=== PATIENT | female | born 1950 | race Caucasian/White ===

== ENCOUNTER 2017-03-10 10:30 | Outpatient (CLI) | payer MEDICARE | END 2017-03-10 10:31 | disposition home or self-care (01) | DX: Z51.81 Encounter for therapeutic drug level monitoring (principal); F31.9 Bipolar disorder, unspecified ==

== ENCOUNTER 2017-06-18 10:00 | Outpatient (CLI) | payer MEDICARE ==
--- NOTE | 2017-06-18 21:02 | CONSULTATION NOTE ---
Palliative Care Consultation - Referral Referring Provider: Javier Hawkins MD Time of Visit: 10:00 Referral setting: Home (Seen in home setting due to taxing and considerable effort required to leave the home secondary to dementia and severe mental illness causing her to be homebound.) Referral Reason: Weight loss, comfort and care needs, advance care planning. - Information Sources History obtained from: Patient, Family Exam limitations: Clinical condition (dementia and mental illness) - History of Present Illness Brief History of Present Illness: Thank you, Dr. Javier Hawkins, for asking the palliative care consult service to be involved in the care of your patient. I am asked to provide support regarding a decline in weight, increased frailty, and goals of care in the setting of dementia memory problems, and bipolar disorder. This is a 66-year-old woman with dementia and a long-history of bipolar disorder with psychotic symptoms (auditory hallucinations) in more recent years. She lives at home with her , who is her sole caregiver. For many years he was the editor greeting card of the [employer] newspaper, and he has been retired for several years now in order to care for his . He explained that in the past her bipolar disorder was controlled with lithium (starting in 1984) , and she had an outgoing and gregarious personality. 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 In 2012 she had an involuntary hospitalization in [facility] geriatric psychiatric unit for about 40 days. Tonasket was stopped and quetiapine started. Initially the quetiapine worked well; she was happy walking the dog, hosting dinner parties, etc. In January 2016 she started having auditory hallucinations and was treated at [facility] in [place] with haloperidol. After these episodes, there was a significant change, and she gradually declined until she now spends most of her time in the home, no longer wants to go out, sleeps 17-18 hours a day, usually in bed or on the couch until 11:00am or noon. She is no longer interacting with people. Her daughter comes over with her two young children, ages 5 and 8, and the patient acknowledges them but does not interact or play with them. Slowly friendships have dropped off; people are no longer calling (she is hard of hearing, does not want to wear hearing aids, and has difficulties following the conversation). Her dementia is a factor, with increasing memory issues and forgetfulness. She has had a steady and significant weight loss in the past two years, losing 1/3 of her weight (154 lbs in May 2015, to 102 lbs in May 2017).When asked about this, she says she is not hungry. Her is trying various foods and various ways of preparing them. She has been having problems with swallowing and choking, so he is starting to chop the meat finely. She has refused a swallow evaluation in the past and is currently scheduled for a barium swallow test on 06/24/2017; her hopes she will not refuse. She is being followed by Dr Javier Grijalva, her PCP at [facility], as well as Dr Joyce, a psychiatrist who manages her psychiatric medications. She had a recent brain MRI last week, as well as a chest CAT scan. Her spouse was not sure what the chest scan was for. He was surprised she finished the MRI ; the machine was very loud and it upset her, but she did complete the test. The doctors plan is to slowly wean her off the antipsychotics and increase lithium in the hope that this might improve her situation. She fell in August 2016 resulting in a L shoulder fracture, and has been having PT sessions, which her reports are almost finished. She states her L shoulder still hurts, but does not take pain medication for it. She talked about being cold several times during the visit, and inquired whether we were too. Her reports she has had some thyroid testing previously. We filled out a POLST for her during this visit; the was sure she wanted full treatment, and says she always said she wanted to live forever. She agreed to full treatment, but also was concerned that we not make her do anything. I assured her we would not and in fact could not. This was a recurrent theme; as she has refused treatment and procedures in the past, and still has some negative feelings towards past treatments, in particular the involuntary hospitalization in 2012. Information obtained from patient, spouse, and EMR chart notes from [place] visit 05/30/17. Medical/Surgical History - Past Medical History Cardiovascular: reports: None Respiratory: reports: None Neuro: reports: None, Dementia, Tremors Endocrine/Autoimmune: reports: None, HyPOthyroidism GI: reports: GERD, Colon polyps : reports: None HEENT: reports: None Psych: reports: Anxiety, Bipolar disorder Musculoskeletal: reports: None, Other (healed fracture of L shoulder) Derm: reports: None MRSA Hx?: No Social History - Living Situation Living arrangement: At home Living Situation: With spouse/s.o. Support System: is sole caregiver. Daughter and her and two young children live close by, in [place]. There are also two other adult daughters. Medications/Allergies - Medications Home Medications: Ambulatory Orders Medication Instructions Recorded Confirmed Benztropine [Cogentin] 0.5 mg PO DAILY 08/14/16 06/18/17 Donepezil HCl [Aricept] 10 mg PO DAILY 08/14/16 06/18/17 Hydrocodone/Acetaminophen [[place] 1 each PO Q6H PRN #20 tablet 08/14/16 5-325 Tablet] QUEtiapine [SEROquel] 50 mg PO TID 08/14/16 06/18/17 Haloperidol 1.5 mg DAILY PM 06/18/17 06/18/17 Haloperidol [Haloperidol] 1 mg BID 06/18/17 06/18/17 [place] 300 mg PO DAILY 06/18/17 06/18/17 Lorazepam [Lorazepam] 06/18/17 - Allergies Allergies/Adverse Reactions: Allergies Allergy/AdvReac Type Severity Reaction Status Date / Time aspirin Allergy Intermediate Rash Verified 05/11/13 07:27 Sulfa (Sulfonamide Allergy Intermediate Edema Verified 05/11/13 07:27 Antibiotics) hydrogen peroxide Allergy Mild Rash Verified 05/11/13 09:34 [Hydrogen Peroxide] Penicillins Allergy Unknown unknown Verified 05/11/13 09:44 polyethylene glycol 3350 * Allergy Unknown unknown Verified 05/11/13 09:44 [From Miralax] procaine HCl * Allergy Unknown unknown Verified 05/11/13 09:44 [From Novocain] tape Allergy Intermediate Rash Uncoded 05/11/13 09:35 Review of Systems - Ears, Nose & Throat Ears, Nose & Throat: reports: Hearing loss - Cardiovascular Cariovascular: denies: Chest pain, Edema - Gastrointestinal Gastrointestinal: reports: Constipation - Genitourinary Genitourinary: denies: Dysuria - Musculoskeletal Musculoskeletal: reports: Other (L shoulder pain s/p fracture) - Endocrine Endocrine: reports: Intolerance to cold Physical Examination - Vital Signs Temperature: 98.5 C Pulse Rate: 59 O2 Saturation: 95 Blood Pressure: 112/80 - Physical Exam General Appearance: positive: No acute distress, Lethargic Eyes Bilateral: positive: No lid inflammation, Conjunctivae nml, No scleral icterus Neck: positive: Trachea midline Respiratory: positive: Chest non-tender, No respiratory distress, Breath sounds nml Cardiovascular: positive: Regular rate & rhythm, No murmur Abdomen: positive: Non-tender, No organomegaly, Nml bowel sounds Extremities: positive: Non-tender, Other (limited ROM upper L extremity) Palliative Care - POLST Patient has POLST: Yes POLST Status: Full Code Pain: Location (L shoulder) Drowsiness: Mild (1-3) Nausea: None Anxiety: Mild (1-3) Dyspnea: None Anorexia: Moderate (4-6) Insomnia: Other (sleeps 17-18 hours as reported by ) Constipation: Yes Feelings of wellbeing/Perceived Quality of Life: Comment (she would like to be able to talk to more people, like she used to) Performance Status: Previous level of function prior to this episode: In 2012 prior to the hallucinating episodes and subsequent involuntary hospitalization, there were episodes but 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 Current level of functioning: Shuffling gait, but will not use walker. supports her by the arm when they leave the house. Decreasing performance of ADLs; brushes but cannot floss teeth, must now bath her and does it two times a week. Loss of 1/3 of weight over the past two years (154 lbs 05/2015, 102 lbs 05/2017). Prefers staying in house; is in bed or on couch most of the time. Sleeps excessively (17 hrs/day). Limited range of motion in L arm, s/p L shoulder fracture 08/2016. General weakness of lower and upper extremities. Memory problems, with difficulty following the conversation. Palliative Care Performance Status: 60% - Palliative Care Discussion: Who is present: The patient, her spouse, myself Surrogate decision maker: Spouse Beto Harrington, Patient/Family understanding of the illness: Patient has limitations of her understanding due to dementia and her psychiatric illness. She is aware of her social isolation, that people no longer call or come over, and that talking with people is something she enjoys. But she says she prefers to stay at home. is cautiously hopeful that medication adjustments by the psychiatrist may help improve her day-to-day life, but also recognizes this may not improve. Most important goals: Spouse wishes for improved quality of life for the patient. He requests help and guidance with her medical situation and guidance on taking care of her needs at home. . During my conversation with the patient, she said that she enjoys talking to people but friends and others are not around anymore, and no one calls. Her said that my conversation with her was the longest she had spoken to anyone in quite awhile. He thinks it would be good for her to have people come to the house, such as volunteers through Palliative [facility], and the palliative care rotary filter operator, in order to increase her social contact and help get her involved in life again. Patient/family concerns: Her is happy to have support from the palliative care team and is agreeable to having PROFESSOR OF FINE ART support. When asked if he currently has any accounts payable processor support, he said he doesnt but that his daughter has told him he needs it. He doesnt think it is necessary, He stays at home most of the time, leaving just for 1 hour at a time to run errands. He down- played this role and said he was happy to do this; I am concerned about accounts payable processor burnout. They were able to go on a family outing this past year to [place], with their daughter and her family. He enjoyed the outing but the patient stayed in the car, and didnt go to the beach. is also concerned about her refusals to go to medical appointments or getting her to agree to participate in tests or procedures. Patient was perseverating about her choosing DNR on his own POLST, and the anticipated this might become a topic of fixation for her. She is not anxious about her own POLST choice of full code. I assured them it is a flexible tool, and we can continue discussions at future visits as needed and desired. Impression and Recommendations - Palliative Care Impression: This is a 66-year-old woman with severe psychiatric illness compounded by advancing dementia, with significant weight loss since 2015 and declining functionality. Both she and her have become socially isolated due to the demands and constraints of her illnesses, and there is high risk of accounts payable processor burnout. She is socially isolated and would likely benefit from increased contact, if the right match could be made, for example, with a volunteer. She currently does not meet criteria for home health or hospice, but she and her would benefit from palliative care support. Her psychiatric medications are being managed by a psychiatrist. She is at risk for aspiration pneumonia secondary to likely dysphagia; a barium swallow has been scheduled for next week. EARLY CHILDHOOD LEAD TEACHER evaluation has been refused by the patient. Recommendations/Counseling Done: 1. Advanced planning: Completed POLST. May revisit at a future visit, as needed by patient and family. Goals of care are improving quality of life for the patient and supporting in his role. Referral to PROFESSOR OF FINE ART for help with this. 2. Dementia with psychosis/bipolar disorder: Currently on quetiapine, haloperidol, lorazepam, lithium, benztropine, and donepezil, titration of psychiatric medsis managed by her psychiatrist. MRI and chest scan done last week. 3. Social isolation: PROFESSOR OF FINE ART referral (see above) and also recommend assigning an appropriate volunteer, as well as rotary filter operator visits. They will talk about it to see if she is willing and comfortable having another person(s) come to the house, and we will continue the discussion at my next visit in two weeks. 4. Dysphagia: Barium swallow test scheduled for 06/24. Hopefully patient will agree to procedure and EARLY CHILDHOOD LEAD TEACHER evaluation. The cuts food into small pieces in meantime. 5. Anorexia: Her will test out Ensure and Boost with her and if she likes them, I will prescribe so he can get a discount at [facility]. 6. Pain in L shoulder: Physical therapy sessions are drawing to a close. Patient says she is not taking anything for the pain; confirm with if she is taking Tylenol or other analgesic. Time Spent: 120 minutes with greater than 50% of this done in counseling and coordination of care, weighing benefits and burdens of treatment options, explanation of POLST options and discussion of advanced planning.
== END 2017-06-18 10:01 | disposition home or self-care (01) ==
LOC: PC 10:00
PROVIDERS: ATTEND Nurse Practitioner
DX: Z51.5 Encounter for palliative care (principal); F03.90 Unspecified dementia, unspecified severity, without behavioral disturbance, psychotic disturbance, mood disturbance, and anxiety; Z60.4 Social exclusion and rejection; R13.10 Dysphagia, unspecified; R63.0 Anorexia; M25.512 Pain in left shoulder; F31.9 Bipolar disorder, unspecified; R63.4 Abnormal weight loss; Z91.81 History of falling; Z79.899 Other long term (current) drug therapy; Z87.81 Personal history of (healed) traumatic fracture
CPT/HCPCS: 99345

== ENCOUNTER 2017-07-03 14:55 | Outpatient (CLI) | payer MEDICARE ==
--- NOTE | 2017-07-03 16:43 | PROVIDER PROGRESS NOTE ---
Palliative Care Follow Up - Referral Referring Provider: Dr Javier Grijalva Time of Visit: 14:55 Referral setting: Home (Seen in home setting due to taxing and considerable effort required to leave the home secondary to dementia and severe mental illness causing her to be homebound.) - Information Sources History obtained from: Patient, Family Exam limitations: Clinical condition (dementia and mental illness) - History of Present Illness Update Brief HPI Update: This is a 66-year-old woman with dementia and a long-history of bipolar disorder and a more complicated psychiatric history since 2007, including psychotic symptoms (auditory hallucinations) and involuntary hospitalization. She now lives at home with her , who is her sole caregiver. She spends almost all of her time in the house, sleeping many hours per day. Her also does not get out much apart from running short errands for an hour or so. Yesterday she had a modified barium swallow test which indicated dysphagia and she has a referral to the Speech Language therapist. She has a history of refusing treatment and not going to appointments, so her is uncertain whether she will agree to an appointment. I explained to her what the swallow test was for and why therapy could help her avoid becoming sick with aspiration pneumonia. Her appetite is poor, and this is compounded by the dysphagia. Her is chopping her food finely, and has a referral for a icu registered nurse but again, it is uncertain whether she will agree to go. I gave him recipes for high-calorie smoothies and drinks, recommended adding powdered milk to drinks, and he liked that idea. I also recommended smaller, more frequent meals. Her weight today on the home scale was 98 lbs; her latest weight at the doctors office was 102 lbs, so it is unclear if she has lost more or it is a difference between scales. Two years ago her weight was 154 lbs. She was pleasant and cooperative during this visit and seemed more comfortable in my presence. She has difficulty following the conversation, and has significant memory deficits but is also able to recall some recent events, such as going to the barium swallow procedure yesterday. Her hearing deficit further impedes her comprehension. She has no complaint today about pain; she recently completed physical therapy for a L shoulder injury. Her BP today was 90/62 on L arm; she denied vertigo, lightheadedness, syncope or feeling weak. BP on R arm 5 minutes later was 100/66. Information obtained from patient, spouse, and EMR chart notes. Medications/Allergies - Medications Home Medications: Ambulatory Orders Medication Instructions Recorded Confirmed Benztropine [Cogentin] 0.5 mg PO DAILY 08/14/16 07/03/17 Donepezil HCl [Aricept] 10 mg PO DAILY 08/14/16 07/03/17 Hydrocodone/Acetaminophen [[place] 1 each PO Q6H PRN #20 tablet 08/14/16 07/03/17 5-325 Tablet] QUEtiapine [SEROquel] 50 mg PO TID 08/14/16 07/03/17 Haloperidol 1.5 mg DAILY PM 06/18/17 07/03/17 Haloperidol [Haloperidol] 1 mg BID 06/18/17 07/03/17 [place] 300 mg PO DAILY 06/18/17 07/03/17 Lorazepam [Lorazepam] 0.25 mg PO BID 06/18/17 07/03/17 LORazepam [Ativan] 0.5 mg PO QPM MDD at bedtime 07/03/17 07/03/17 - Allergies Allergies/Adverse Reactions: Allergies Allergy/AdvReac Type Severity Reaction Status Date / Time aspirin Allergy Intermediate Rash Verified 05/11/13 07:27 Sulfa (Sulfonamide Allergy Intermediate Edema Verified 05/11/13 07:27 Antibiotics) hydrogen peroxide Allergy Mild Rash Verified 05/11/13 09:34 [Hydrogen Peroxide] Penicillins Allergy Unknown unknown Verified 05/11/13 09:44 polyethylene glycol 3350 * Allergy Unknown unknown Verified 05/11/13 09:44 [From Miralax] procaine HCl * Allergy Unknown unknown Verified 05/11/13 09:44 [From Novocain] tape Allergy Intermediate Rash Uncoded 05/11/13 09:35 Review of Systems - Constitutional Constitutional: reports: Weight loss - Ears, Nose & Throat Ears, Nose & Throat: reports: Hearing loss - Cardiovascular Cariovascular: reports: Chest pain. denies: Lightheadedness, Syncope - Respiratory Respiratory: denies: Cough, SOB at rest - Gastrointestinal Gastrointestinal: denies: Constipation, Diarrhea, Change in bowel habits - Genitourinary Genitourinary: denies: Dysuria - Endocrine Endocrine: reports: Intolerance to cold Physical Examination - Vital Signs Temperature: 97.6 C Pulse Rate: 81 O2 Saturation: 97 Blood Pressure: 100/66 - Physical Exam General Appearance: positive: No acute distress Eyes Bilateral: positive: No lid inflammation, Conjunctivae nml, No scleral icterus Neck: positive: Trachea midline Respiratory: positive: Chest non-tender, No respiratory distress, Breath sounds nml Cardiovascular: positive: Regular rate & rhythm Extremities: positive: Non-tender, No pedal edema Neurologic/Psychiatric: positive: Other (affect flat) Palliative Care - POLST Patient has POLST: Yes POLST Status: Full Code Pain: No pain Drowsiness: None Nausea: None Anxiety: None Dyspnea: None Anorexia: Moderate (4-6) Insomnia: Sleeps well (sleeps excessively) Feelings of wellbeing/Perceived Quality of Life: No change Performance Status: Current level of functioning: Shuffling gait, does not use walker, supports her when they walk outside, which she will agree to occasionally. Cannot perform all ADLs; brushes but cannot floss teeth, must now bath her and does it two times a week. Loss of 1/3 of weight over the past two years (currently around 100 lbs, previously was 154 lbs). Mostly housebound and sleeps most of the day. General weakness of lower and upper extremities. Memory deficits and hearing loss make it difficult for her to follow the conversation. Palliative Care Performance Status: 60% - Palliative Care Discussion: Who is present: The patient, her spouse, myself Surrogate decision maker: Spouse Beto Harrington, Patient/Family understanding of the illness: Patient lacks comprehension of her disease. She has significant memory deficits, but will remember her experiences with healthcare providers and appointments, such as going to the barium swallow procedure yesterday, without understanding the reasons. hopes for some improvement with psychiatric medication adjustments, but is realistic enough to know that these would be minor improvements, at most. He stated today that he thinks he will before his does, luckily. Most important goals: Her likes having a medical worker coming to the home and keeping an eye on her medically since he doesnt have medical expertise. Patient/family concerns: Her wants to continue receiving healthcare support at home since it is so difficult to get her to agree to go to appointment and see biomedical engineering aide. Her weight loss is quite concerning and needs support. He is hopeful his will agree to see a icu registered nurse; they already have a referral in place. The patient is full code. Impression and Recommendations - Palliative Care Impression: This is a 66-year-old woman with severe psychiatric illness compounded by advancing dementia, with significant weight loss since 2015 and declining functionality. Her is her sole caregiver and risks burnout, but is resistant to having outside chief wheelage clerk support, saying his would not accept it. ERP SPECIALIST support may be provide some new ideas and a visit is scheduled for tomorrow. Recommendations/Counseling Done: 1. Advanced planning: POLST which is full code. Goals of care are improving quality of life for the patient and supporting in his role. Referral to ERP SPECIALIST for help with this, she has an appointment with them tomorrow. 2. Dementia with psychosis/bipolar disorder: Stable on quetiapine, haloperidol , lorazepam, lithium, benztropine, and donepezil, titration of psychiatric medications is managed by her psychiatrist. Last titration was about 2 months ago; so far they have been unsuccessful in lowering antipsychotic dosing. 3. Dysphagia: Barium swallow test completed. Therapy recommended to improve swallow function and decrease risk of choking/aspiration pneumonia. 4. Anorexia: Supplied high-calorie smoothie recipes, recommended using powdered milk to increase calories and serving smaller, more frequent meals. Referral to icu registered nurse in place, uncertain if patient will agree to participate. Time Spent: 45 minutes with greater than 50% of this done in counseling and coordination of care, weighing benefits and burdens of treatment options, and reviewing advanced planning.
== END 2017-07-03 14:56 | disposition home or self-care (01) ==
LOC: PC 14:55
PROVIDERS: ATTEND Nurse Practitioner
DX: Z51.5 Encounter for palliative care (principal); F31.9 Bipolar disorder, unspecified; R63.4 Abnormal weight loss; F03.90 Unspecified dementia, unspecified severity, without behavioral disturbance, psychotic disturbance, mood disturbance, and anxiety; R13.10 Dysphagia, unspecified; R63.0 Anorexia; Z79.899 Other long term (current) drug therapy
CPT/HCPCS: 99349

== ENCOUNTER 2017-07-31 11:00 | Outpatient (CLI) | payer MEDICARE ==
--- NOTE | 2017-07-31 17:32 | CONSULTATION NOTE ---
Palliative Care Follow Up - Referral Referring Provider: Javier Hawkins MD Time of Visit: 11:00 Referral setting: Home (Seen in home setting due to taxing and considerable effort required to leave the home secondary to dementia and severe mental illness causing her to be homebound.) - Information Sources Records reviewed: Previous records reviewed History/Review of Systems obtained from: Patient, Family Exam limitations: Clinical condition (dementia complicated by mental illness) - History of Present Illness Update Brief HPI Update: This is a 66-year-old woman with dementia and a long-history of bipolar disorder and a more complicated psychiatric history since 2007, including psychotic symptoms (auditory hallucinations) and involuntary hospitalization. She now lives at home with her , who is her sole caregiver. She spends most of her time in the house, sleeping many hours per day. Her also does not get out much apart from running short errands for an hour or so. The patients reports that she has a distrust of healthcare workers after her experiences being involuntarily hospitalized. So she frequently refuses to go to scheduled medical appointments.This occurred most recently with the speech language therapist after a barium swallow test at the end of June indicated dysphagia. She now has a new appointment set for Aug 11. Her appetite continues to be poor, and her says she has always been a finicky eater. She was 154 lbs in May 2015, 135 lbs December 2015, ~98 lbs 07/03 and ~95 lbs today. Her states that she has not left the house since my last visit, and they have not had visitors, including their daughter. Their daughter is coming to visit them this weekend. During a recent visit by the LEAF COVERER, both he and his resisted recommendations to hire caregivers. It is not clear if this is due to financial constraints or not wanting healthcare workers in their house. The is very resistant to having other people in the house, and the carefully negotiates these issues with her. As I have noted before, he is at risk of microbiological lab technician burn out since he is taking care of her essentially by himself. He has repeatedly stated he wants Palliative Care visits monthly, and I feel this is a arroyo need; their isolation is concerning, and he needs and desires medical oversight of his wifes condition, since she often refuses to attend medical appointments. She has no complaint today about pain, but her reports she has L hip pain after any exercise. If they go out on a walk, she is in pain afterward. She has had PT in the past for her L shoulder; she has limited ROM in the L arm and shoulder, but it is better than it was previously, as reported by the . She does report hearing crickets during the visit, and says that she wasnt hearing them this morning. This is unclear if its an auditory hallucination, or a description of tinnitus. Her lithium has been titrated recently up to 450mg daily after a low lithium level of 0.5 (0.8-1.0 normal range) Information obtained from patient, spouse, and EMR chart notes. Social History - Living Situation Living arrangement: At home Living Situation: With spouse/s.o. Support System: Virtually no outside support. One daughter lives in [place] with her family, and appears to visit infrequently. There are also two other adult daughters. Medications/Allergies - Medications Home Medications: Ambulatory Orders Medication Instructions Recorded Confirmed Benztropine [Cogentin] 0.5 mg PO DAILY 08/14/16 07/31/17 Donepezil HCl [Aricept] 10 mg PO DAILY 08/14/16 07/31/17 Hydrocodone/Acetaminophen [[place] 1 each PO Q6H PRN #20 tablet 08/14/16 07/31/17 5-325 Tablet] QUEtiapine [SEROquel] 50 mg PO TID 08/14/16 07/31/17 Haloperidol 1.5 mg DAILY PM 06/18/17 07/31/17 Haloperidol [Haloperidol] 1 mg BID 06/18/17 07/31/17 [place] 450 mg PO DAILY 06/18/17 07/31/17 Lorazepam [Lorazepam] 0.25 mg PO BID 06/18/17 07/31/17 LORazepam [Ativan] 0.5 mg PO QPM MDD at bedtime 07/03/17 07/31/17 - Allergies Allergies/Adverse Reactions: Allergies Allergy/AdvReac Type Severity Reaction Status Date / Time aspirin Allergy Intermediate Rash Verified 05/11/13 07:27 Sulfa (Sulfonamide Allergy Intermediate Edema Verified 05/11/13 07:27 Antibiotics) hydrogen peroxide Allergy Mild Rash Verified 05/11/13 09:34 [Hydrogen Peroxide] Penicillins Allergy Unknown unknown Verified 05/11/13 09:44 polyethylene glycol 3350 * Allergy Unknown unknown Verified 05/11/13 09:44 [From Miralax] procaine HCl * Allergy Unknown unknown Verified 05/11/13 09:44 [From Novocain] tape Allergy Intermediate Rash Uncoded 05/11/13 09:35 Review of Systems - Constitutional Constitutional: reports: Weakness, Poor appetite, Other (Feels cold) - Ears, Nose & Throat Ears, Nose & Throat: reports: Hearing loss, Tinnitus ([place] "crickets") - Cardiovascular Cardiovascular: denies: Palpitations, Chest pain - Respiratory Respiratory: denies: Cough, SOB at rest - Gastrointestinal Gastrointestinal: denies: Constipation, Diarrhea, Nausea - Genitourinary Genitourinary: denies: Dysuria - Musculoskeletal Musculoskeletal: reports: Other ( reports L hip pain after exertion) - Neurological Neurological: reports: General weakness, Abnormal gait (shuffling), Other ( tremors of both upper extremities) - Psychiatric Psychiatric: reports: Anxiety (on lorazepam), Hallucinations (history of), Behavior disturbances (none reported recently) - Endocrine Endocrine: reports: Intolerance to cold Physical Exam - Vital Signs Temperature: 97.6 F Pulse Rate: 87 O2 Saturation: 95 Blood Pressure: 118/70 - Physical Exam General Appearance: positive: No acute distress, Lethargic Eyes Bilateral: positive: EOMI, No lid inflammation, Conjunctivae nml, No scleral icterus ENT: positive: No signs of dehydration Neck: positive: No JVD, Trachea midline Cardiovascular: positive: Regular rate & rhythm, No murmur Respiratory: positive: No respiratory distress, Diminished in bases Extremities: positive: No pedal edema Neurologic/Psychiatric: positive: Disoriented to time, Flat affect. negative: Motor nml (gross tremors of upper extremities) Palliative Care - POLST Patient has POLST: Yes POLST Status: Full Code Pain: Pain unchanged, Location (L hip, with exertion) Tiredness/Fatigue: Mild (1-3) (excessive sleep) Drowsiness/Sedation: Mild (1-3) Nausea: None Depression: None Anxiety: Mild (1-3) Anorexia: Moderate (4-6) Sleep: Sleeps well Constipation: Intermittent constipation Feelings of wellbeing/Perceived Quality of Life: No change Performance Status: Current level of functioning: Shuffling gait, does not use walker, support by outside the house. Requires aid with all ADLs, but brushes her own teeth. General weakness of lower and upper extremities, significant weight loss over 2 years (154 lbs to 98-95 lbs). Memory deficits and hearing loss contribute to the patients isolation, and by extension, the husbands too. Palliative Care Performance Status: 60% - Palliative Care Discussion: Who is present: The patient, her spouse, myself Surrogate decision maker: Spouse Beto Harrington, home [phone] Most important goals: Her specifically requests continuation of monthly visits. They lead a very isolated life, are very unlikely to bring in outside caretaking help, and he wishes to have medical oversight for her, as it is extremely difficult to get her to leave the house, and to agree to medical appointments. She stated today that she didnt like me coming in to the house, and her stated that shes actually ok. She was cooperative and followed directions. Patient/family concerns: Her weight loss, and her is hopeful she will attend the upcoming speech language therapy session on 08/11/17. She refused the previous appointment. The patient continues to be full code. Impression and Recommendations - Palliative Care Impression: This is a 66-year-old woman with severe psychiatric illness compounded by advancing dementia, with significant weight loss since 2015 and declining functionality. She and her are very socially isolated; she rarely leaves the house and often refuses to go to scheduled medical appointments. Her is her sole caregiver and risks burnout. They will benefit from Palliative Care oversight. The is currently full code, but continues to have failure to thrive. On-going discussions of goals of care Recommendations/Counseling Done: 1. Advanced planning: POLST is full code. Goals of care are improving quality of life for the patient and supporting in his role. requests continued Palliative Care visits monthly, both as a support for him in his isolated role, and as reassurance for him that his is receiving medical oversight as it is very challenging to get her out to medical, or any appointments. 2. Dementia with psychosis/bipolar disorder: Stable on a complicated regimen of psychiatric medications, including quetiapine, haloperidol, lorazepam, lithium, benztropine, and donepezil. Her psychiatrist has increased her lithium to 450mg daily due to low lithium levels (0.5, with the normal range being 0.8- 1.0) 3. Dysphagia: Barium swallow test was positive. Previous [employer] MANA[employer] therapy appointment was cancelled by patient; a new appointment is scheduled for . is not sure his will agree to go. 4. Failure to thrive: Further weight loss, now at 95 lbs. Continue to monitor. May consider adding mirtazapine, need to consult first with psychiatrist due to the complicated regimen of psych meds she is currently taking. Encourage her to continue to supply high calorie meals and snacks, and smaller more frequent meals. 5. Parkinsons: Symptomatic with shuffling gait, resting tremors of bilateral upper extremities. On Benztropine daily. Recommended several accommodations for improving her daily functions (eg, using heavier mugs, etc) Time Spent: 45 minutes with greater than 50% of this done in counseling and coordination of care around eating, weight loss, dementia, and goals of care.
== END 2017-07-31 11:01 | disposition home or self-care (01) ==
LOC: PC 11:00
PROVIDERS: ATTEND Nurse Practitioner
DX: Z51.5 Encounter for palliative care (principal); F03.90 Unspecified dementia, unspecified severity, without behavioral disturbance, psychotic disturbance, mood disturbance, and anxiety; F31.9 Bipolar disorder, unspecified; R13.10 Dysphagia, unspecified; R62.7 Adult failure to thrive; G20 Parkinson's disease; R44.0 Auditory hallucinations; M25.552 Pain in left hip; Z79.891 Long term (current) use of opiate analgesic; R53.1 Weakness; F41.9 Anxiety disorder, unspecified; R63.4 Abnormal weight loss; K59.00 Constipation, unspecified
CPT/HCPCS: 99349

== ENCOUNTER 2017-08-28 11:00 | Outpatient (CLI) | payer MEDICARE ==
--- NOTE | 2017-08-28 15:33 | CONSULTATION NOTE ---
Palliative Care Follow Up - Referral Referring Provider: Dr. Javier Hawkins Time of Visit: 11:15 Referral setting: Home (Seen in home setting due to taxing and considerable effort required to leave the home secondary to dementia and severe mental illness causing her to be homebound.) - Information Sources Records reviewed: Previous records reviewed History/Review of Systems obtained from: Patient, Family Exam limitations: Clinical condition (Dementia with psychosis) - History of Present Illness Update Brief HPI Update: This is a 66-year-old woman with dementia and a long history of bipolar disorder and a more complicated psychiatric history since 2007, including psychotic symptoms (auditory hallucinations) and involuntary hospitalization. She now lives at home with her who is her sole caregiver. She spends most of her time in the house, sleeping many hours per day. Her also does not get out much apart from running short errands for an hour or so. Since my last visit she did not attend the 08/11/17 appointment with the speech therapist. The speech therapist provided advice and guidance over the phone to the , and he is following this advice and feels that it has improved her swallowing. We discussed further interventions to minimize issues with dysphagia. She reports an increased appetite and thinks she is eating better, however she has lost another pound, now at 94 pounds. She continues to be very isolated in the house, however they have had visitors lately. Her daughter and grandchildren recently visited, and this weekend she is expecting her sister from [place] for about a week. At [facility] her daughter from [place] will be staying with them for one week. We discussed her leaving the house at least once a day for even just a few minutes as a way to increase her exercise and alleviate her mood. She does continue to spend many hours sleeping throughout the day and is socially isolated. She has been stable since my last visit. Again the expresses his gratitude and relief to have a medical provider checking up on her regularly since it is very difficult to get her to agree to go to medical appointments. Social History - Living Situation Living arrangement: At home Living Situation: With spouse/s.o. (He is her sole caregiver.) Medications/Allergies - Medications Home Medications: Ambulatory Orders Medication Instructions Recorded Confirmed Benztropine [Cogentin] 0.5 mg PO DAILY 08/14/16 07/31/17 Donepezil HCl [Aricept] 10 mg PO DAILY 08/14/16 07/31/17 Hydrocodone/Acetaminophen [[place] 1 each PO Q6H PRN #20 tablet 08/14/16 07/31/17 5-325 Tablet] QUEtiapine [SEROquel] 50 mg PO TID 08/14/16 07/31/17 Haloperidol 1.5 mg DAILY PM 06/18/17 07/31/17 Haloperidol [Haloperidol] 1 mg BID 06/18/17 07/31/17 [place] 450 mg PO DAILY 06/18/17 07/31/17 Lorazepam [Lorazepam] 0.25 mg PO BID 06/18/17 07/31/17 LORazepam [Ativan] 0.5 mg PO QPM MDD at bedtime 07/03/17 07/31/17 - Allergies Allergies/Adverse Reactions: Allergies Allergy/AdvReac Type Severity Reaction Status Date / Time aspirin Allergy Intermediate Rash Verified 05/11/13 07:27 Sulfa (Sulfonamide Allergy Intermediate Edema Verified 05/11/13 07:27 Antibiotics) hydrogen peroxide Allergy Mild Rash Verified 05/11/13 09:34 [Hydrogen Peroxide] Penicillins Allergy Unknown unknown Verified 05/11/13 09:44 polyethylene glycol 3350 * Allergy Unknown unknown Verified 05/11/13 09:44 [From Miralax] procaine HCl * Allergy Unknown unknown Verified 05/11/13 09:44 [From Novocain] tape Allergy Intermediate Rash Uncoded 05/11/13 09:35 Review of Systems - Constitutional Constitutional: reports: Weakness, Poor appetite (but improving), Weight loss ( 94 lbs Aug 2017. 95 lbs Jul 2017. 98 lbs Jun 2017. 135 lbs Dec 2015. 154 lbs May 2015.) - Eyes Eyes: reports: Other (dry, teary eyes when heating system was blowing out hot air. Eyes recuperated when heating system was stopped) - Ears, Nose & Throat Ears, Nose & Throat: reports: Hearing loss - Respiratory Respiratory: denies: Cough, SOB at rest, SOB with exertion - Gastrointestinal Gastrointestinal: reports: Constipation (occasional). denies: Nausea, Vomiting - Genitourinary Genitourinary: denies: Dysuria, Frequency, Incontinence - Musculoskeletal Musculoskeletal: reports: Other (no pain complaints today) - Neurological Neurological: reports: Abnormal gait (shuffling, careful) - Psychiatric Psychiatric: reports: Depression, Anxiety, Hallucinations (not currently), Behavior disturbances (at baseline) - Endocrine Endocrine: reports: Intolerance to cold Physical Exam - Vital Signs Temperature: 97.6 F Pulse Rate: 72 O2 Saturation: 96 Blood Pressure: 107/68 - Physical Exam General Appearance: positive: No acute distress, Lethargic Eyes Bilateral: positive: EOMI, No lid inflammation, No scleral icterus. negative: Conjunctivae nml (slightly injected from forced air heating system) ENT: positive: No signs of dehydration Neck: positive: Thyroid nml, No JVD, Trachea midline Cardiovascular: positive: Regular rate & rhythm, No murmur, No gallop Respiratory: positive: No respiratory distress, Diminished throughout Extremities: positive: Nml appearance, No pedal edema Neurologic/Psychiatric: positive: Disoriented to time, Flat affect. negative: Motor nml (gross tremors, at baseline) Palliative Care - POLST Patient has POLST: Yes POLST Status: Full Code Pain: Pain unchanged Tiredness/Fatigue: Mild (1-3) (sleeps excessively) Drowsiness/Sedation: None Nausea: None Depression: None Anxiety: None Dyspnea: None Anorexia: Mild (1-3) Sleep: Sleeps well (excessively) Constipation: No Feelings of wellbeing/Perceived Quality of Life: No change Performance Status: Current level of functioning: Stable since last visit: shuffling gait, does not use walker in the house, needs support from outside the house. Tremors in upper extremities. Requires assistance with all ADLs. Brushes her own teeth. General weakness of lower and upper extremities, weight is 1/3 less than it was two years ago. Today at 94 lbs. Memory deficits and hearing loss. Socially isolated Palliative Care Performance Status: 60% - Palliative Care Discussion: Who is present: The patient, her spouse, myself Surrogate decision maker: Spouse Beto Harrington, home [phone]. Patient/Family understanding of the illness: Does have insight and understanding of the seriousness of patients current condition. Most important goals: requests continued medical home visits for support and overseeing the patient's health status. Patient/family concerns: He notes that the dysphagia/choking has improved. He is following the HEAD SAWYER's advice on best practices re swallowing deficits. Patient has lost one more pound since last visit, although she reports having an improved appetite. We reviewed tactics such as smaller, more frequent meals and snacks, adding powdered milk to liquids. Impression and Recommendations - Palliative Care Impression: This is a 66-year-old woman with severe psychiatric illness compounded by advancing dementia, with significant weight loss since 2014. She also has declined in functionality, however it has recently stabilized. She continues to be ambulatory but requires support from her when she leaves the house, which is very rarely. She continues to avoid medical appointments, and as such a health hourly caregiver coming to the home is very beneficial. Her is her sole caregiver and risks burnout, another reason to continue palliative care oversight. Recommendations/Counseling Done: Parkinson's disease: Stable symptomatically (shuffling gait, hand tremors). Contniue benztropine. Dementia with psychosis/bipolar disorder. Stable on complicated regimen managed by psychiatrist. Continue quetiapine, haloperidol, lorazepam, lithium, benztropine, donepezil. No hallucinations or delusions reported. Dysphagia: No show at Speech pathology appointment. She advised spouse on several tactics to minimize problems with swallowing. He has noticed an improvement. Weight loss: Lost one more pound, now at 94 lbs. She reports an improved appetite. Counselled on high calorie snacks, adding milk powder, smaller meals. She is not on mirtazapine, since she is on a very complicated psych medication regimen. Continue to monitor weight. Advanced planning: POLST is full code. is sole caregiver, neither of them are interested in bringing in additional caregivers. They are having several family visits between now and the end of the year to counteract some of their social isolation. My next palliative care visit is scheduled for October 02. Time Spent: 30 minutes with greater than 50% of this done in counseling and coordination of care, and evaluation of symptom burden.
== END 2017-08-28 11:01 | disposition home or self-care (01) ==
LOC: PC 11:00
PROVIDERS: ATTEND Nurse Practitioner
DX: Z51.5 Encounter for palliative care (principal); G20 Parkinson's disease; F02.81 Dementia in other diseases classified elsewhere, unspecified severity, with behavioral disturbance; F31.9 Bipolar disorder, unspecified; F29 Unspecified psychosis not due to a substance or known physiological condition; R13.10 Dysphagia, unspecified; R63.4 Abnormal weight loss; Z60.8 Other problems related to social environment
CPT/HCPCS: 99348

== ENCOUNTER 2017-10-02 19:11 | Outpatient (CLI) | payer MEDICARE ==
--- NOTE | 2017-10-02 19:22 | CONSULTATION NOTE ---
Palliative Care Follow Up - Referral Referring Provider: Javier Hawkins MD Time of Visit: 11:10 Referral setting: Home (Seen in home setting due to taxing and considerable effort required to leave the home secondary to dementia and significant mental illness causing her to be homebound.) - Information Sources Records reviewed: Previous records reviewed History/Review of Systems obtained from: Patient, Family Exam limitations: Clinical condition (dementia, bipolar disorder) - History of Present Illness Update Brief HPI Update: This is a 66-year-old woman with dementia and a long history of bipolar disorder and a more complicated psychiatric history since 2007, including psychotic symptoms (auditory hallucinations) and involuntary hospitalization. She lives at home with her who is her sole caregiver. She continues to spend most of her time in the house sleeping most of the day. Her also remains in the house with her because he finds if he is gone for more than an hour for a short errands "she gets into trouble." She has been stable since last visit and in fact she has gained 5 or 6 pounds. They have had family over for and have further family gatherings planned for the holidays. Her sister visited from out of state, but the patient acted in such a way (the did not give details) that the sister left after 2 days instead of staying as planned for 5 days. The patient continues to be quite reclusive, and shows a lack of interest in many, if not most activities. For example her daughter brought jewelry making supplies, a hobby that the patient used to like very much, and the patient did not participate even though her grandchild was doing it. She does not like to go outside, especially now that it is cold. The and I discussed possible outings that might interest her, such as the soup kitchen at [facility] which is open to any one. He is quite skeptical that she will be interested, we discussed possibly finding a caregiver who could come consistently a few times a week so that the patient could get used to her, and this might give him an opportunity to be able to leave the house for some much needed breaks and recreation. it would also give the patient a chance to socialize and lessen her isolation. The reports that she stopped taking lithium about a week ago, per Dr. Joyce, her psychiatrist at [place]. This was because "it wasn't doing any good." She has chronic hip pain, and neither one of them could tell me which hip. She does not like ibuprofen but does use Tylenol 1-2 times per week. John was on her meds list but spouse denied that they had any. We spoke of the possibility of hip replacement, and that did not seem a likely option for her, with her history of refusing medical interventions. She still has an issued with choking while eating so he is very careful to chop her meat and other food fine, which improves the choking. She has refused to go to speech therapist appointments several times. Social History - Living Situation Living arrangement: At home Living Situation: With spouse/s.o. (Very socially isolated and home bound by choice.) Medications/Allergies - Medications Home Medications: Ambulatory Orders Medication Instructions Recorded Confirmed Benztropine [Cogentin] 0.5 mg PO DAILY 08/14/16 10/02/17 Donepezil HCl [Aricept] 10 mg PO DAILY 08/14/16 10/02/17 QUEtiapine [SEROquel] 50 mg PO TID 08/14/16 10/02/17 Haloperidol 1.5 mg DAILY PM 06/18/17 10/02/17 Haloperidol [Haloperidol] 1 mg BID 06/18/17 10/02/17 Lorazepam [Lorazepam] 0.25 mg PO BID 06/18/17 10/02/17 LORazepam [Ativan] 0.5 mg PO QPM MDD at bedtime 07/03/17 10/02/17 Acetaminophen 500 mg PO DAILY PRN 10/02/17 10/02/17 - Allergies Allergies/Adverse Reactions: Allergies Allergy/AdvReac Type Severity Reaction Status Date / Time aspirin Allergy Intermediate Rash Verified 05/11/13 07:27 Sulfa (Sulfonamide Allergy Intermediate Edema Verified 05/11/13 07:27 Antibiotics) hydrogen peroxide Allergy Mild Rash Verified 05/11/13 09:34 [Hydrogen Peroxide] Penicillins Allergy Unknown unknown Verified 05/11/13 09:44 polyethylene glycol 3350 * Allergy Unknown unknown Verified 05/11/13 09:44 [From Miralax] procaine HCl * Allergy Unknown unknown Verified 05/11/13 09:44 [From Novocain] tape Allergy Intermediate Rash Uncoded 05/11/13 09:35 Review of Systems - Constitutional Constitutional: reports: Poor appetite, Weight gain (Used to weight around 150 lbs. Last month was 94 lbs; this month 100 lbs.) - Cardiovascular Cardiovascular: denies: Chest pain, Edema - Respiratory Respiratory: denies: Cough - Gastrointestinal Gastrointestinal: denies: Constipation, Change in bowel habits, Nausea - Genitourinary Genitourinary: denies: Dysuria, Incontinence - Musculoskeletal Musculoskeletal: reports: Joint pain (hip pain, did not remember which side), Other (a) - Neurological Neurological: reports: Memory problems, Abnormal gait - Psychiatric Psychiatric: reports: Hallucinations - Endocrine Endocrine: reports: Intolerance to cold Physical Exam - Vital Signs Temperature: 97.7 F Pulse Rate: 105 O2 Saturation: 99 Blood Pressure: 110/80 - Physical Exam General Appearance: positive: No acute distress, Alert Eyes Bilateral: positive: EOMI, No lid inflammation, Conjunctivae nml, No scleral icterus ENT: positive: No signs of dehydration Neck: positive: Thyroid nml, No JVD, Trachea midline Cardiovascular: positive: Regular rate & rhythm, No murmur, No gallop Respiratory: positive: Chest non-tender, No respiratory distress, Breath sounds nml Abdomen: positive: Non-tender, Soft, Nml bowel sounds Skin: positive: No symptoms Extremities: positive: Nml appearance, No pedal edema Neurologic/Psychiatric: positive: Disoriented to time, Flat affect Palliative Care - POLST Patient has POLST: Yes POLST Status: Full Code Pain: Location (Hip; no complaints currently) Tiredness/Fatigue: Mild (1-3) (sleeps excessively) Drowsiness/Sedation: None Nausea: None Depression: None Anxiety: None Dyspnea: None Anorexia: Moderate (4-6) Sleep: Sleeps well (sleeps throughout the day, excessively) Constipation: No Feelings of wellbeing/Perceived Quality of Life: No change Performance Status: Current level of functioning: Stable, shuffling gait, requires physical support when outside the house. Upper extremity tremors. Requires assistance with all ADLs. General weakness of upper and lower extremities, is under-weight but gained 5 lbs since last month. Today at 100 lbs. Memory deficits and hearing loss. She and her are very socially isolated. - Palliative Care Discussion: Who is present: Patient, spouse, myself. Surrogate decision maker: Spouse Beto Harrington, home [phone]. Family concerns: Spouse has been worried about her weight and is relieved to know she gained 5 lbs. He works hard at cooking for her and chopping/shredding her meat so she does not choke. He would like at least one more Palliative Care visit, and if she continues to be stable, then we will discontinue further visits. Impression and Recommendations - Palliative Care Impression: This is a 66 year old woman with severe psychiatric illness compounded by advancing dementia, with significant weight loss since 2015, as well as declining functionality, which has stabilized in the months I have been assessing her. She has gained 5 lbs since last month's visit. She has also stopped lithium on her psychiatrist's recommendation, as it was not having any beneficial effect on behavior. She is quite socially isolated, and as a result, so is her . He is at risk for caregiver burnout and could benefit from bringing in outside help. He remains skeptical that the patient would accept on- going care giving from someone new. Recommendations/Counseling Done: Dementia with psychosis/bipolar disorder: Psychiatrist DC'd lithium. Continues on quetiapine, haloperidol, lorazepam, benztropine and donepezil. No reported delusions, hallucinations. Patient's behavior was such that her sister, visiting from out of state, stayed only 2 days with them, instead of 5 days. Parkinson's disease: Symptoms at baseline with shuffling gait, hand tremors. Continue banxtropine. Dysphagia: Has refused speech pathology appointments previously. Spouse chops meats and other foods to minimize choking risk. Anorexia: Improvement. From 94 lbs last month to 100 lbs this month. She had previously reported an improved appetite. Spouse makes considerable effort in terms of meals and preparations. Advanced planning: Social isolation is still quite significant. We discussed trying a care process manager who could come regularly. The spouse knows of [employer] 's group which sponsor home care givers. There is also [employer] soup kitchen, for a pleasant social outing. Encouraged spouse to consider contacting such organizations for some outside help and support. Spouse is pleased about patient's recent weight gain. If she is still functionally and cognitively stable at next month's visit, we agreed we will discontinue Palliative Care monitoring. Next visit scheduled for 11/05/16 at 11:00am. Time Spent: 45 minutes were spent with more than 50% of the time spent on counseling, education, and coordination of care.
== END 2017-10-02 19:12 | disposition home or self-care (01) ==
LOC: PC 19:11
PROVIDERS: ATTEND Nurse Practitioner
DX: Z51.5 Encounter for palliative care (principal); F31.9 Bipolar disorder, unspecified; G20 Parkinson's disease; F02.80 Dementia in other diseases classified elsewhere, unspecified severity, without behavioral disturbance, psychotic disturbance, mood disturbance, and anxiety; R13.10 Dysphagia, unspecified; R63.0 Anorexia
CPT/HCPCS: 99349

== ENCOUNTER 2021-02-26 11:02 | Outpatient (CLI) | payer MEDICARE ==
[2021-02-26 14:34] LABS: BASOPHILS # (AUTO) 0.1 10^3/uL (0.0-0.1); BASOPHILS % (AUTO) 1.5 %; EOSINOPHILS # (AUTO) 0.1 10^3/uL (0.0-0.7); EOSINOPHILS % (AUTO) 1.8 %; HCT - HEMATOCRIT 37.9 % (37.0-47.0); HGB - HEMOGLOBIN 12.5 g/dL (12.0-16.0); LYMPHOCYTES # (AUTO) 0.7 10^3/uL (1.5-3.5); LYMPHOCYTES % (AUTO) 20.6 %; MEAN CORPUSCULAR HEMOGLOBIN 29.1 pg (27.0-31.0); MEAN CORPUSCULAR VOLUME 88.3 fL (81.0-99.0); MEAN PLATELET VOLUME 9.7 fL (7.9-10.8); MONOCYTES # (AUTO) 0.3 10^3/uL (0.0-1.0); MONOCYTES % (AUTO) 7.9 %; NEUTROPHILS # (AUTO) 2.2 10^3/uL (1.5-6.6); NEUTROPHILS % (AUTO) 67.9 %; PLT - PLATELET COUNT 186 10^3/uL (130-450); RED BLOOD COUNT 4.29 10^6/uL (4.20-5.40); RED CELL DISTRIBUTION WIDTH 13.2 % (12.0-15.0); WHITE BLOOD COUNT 3.3 x10^3/uL (4.8-10.8)
[2021-02-26 14:57] LABS: ALBUMIN 4.2 g/dL (3.2-5.5); ALBUMIN/GLOBULIN RATIO 1.2 (1.0-2.2); ALKALINE PHOSPHATASE 104 IU/L (42-121); ALT ALANINE AMINOTRANSFERASE 16 IU/L (10-60); AST ASPARTATE AMINOTRANSFERASE 23 IU/L (10-42); BILIRUBIN,TOTAL 0.6 mg/dL (0.2-1.0); BUN - BLOOD UREA NITROGEN 20 mg/dL (6-20); CALCIUM 9.5 mg/dL (8.5-10.3); CARBON DIOXIDE - CO2 23 mmol/L (21-32); CHLORIDE 108 mmol/L (101-111); CHOL/HDL RATIO 3.8 (<4.4); CHOLESTEROL 178 mg/dL; CREATININE 0.9 mg/dL (0.4-1.0); GFR - MDRD 62 (>89); GLUCOSE 124 mg/dL (70-100); HDL CHOLESTEROL 47 mg/dL; LDL CHOLESTEROL,CALCULATED 115 mg/dL; LDL/HDL RATIO 2.4 (<4.4); POTASSIUM 4.2 mmol/L (3.5-5.0); SODIUM 140 mmol/L (135-145); TOTAL PROTEIN 7.6 g/dL (6.7-8.2); TRIGLYCERIDES 80 mg/dL; VLDL CHOLESTEROL 16 mg/dL
[2021-02-26 15:01] LABS: THYROID STIMULATING HORMONE 0.93 uIU/mL (0.34-5.60)
== END 2021-02-26 11:03 | disposition home or self-care (01) ==
LOC: LAB.S 11:02
PROVIDERS: ATTEND Physician Assistant
DX: Z00.00 Encounter for general adult medical examination without abnormal findings (principal); Z79.899 Other long term (current) drug therapy; R35.0 Frequency of micturition; K59.00 Constipation, unspecified; F03.90 Unspecified dementia, unspecified severity, without behavioral disturbance, psychotic disturbance, mood disturbance, and anxiety; F31.9 Bipolar disorder, unspecified; F41.9 Anxiety disorder, unspecified; R26.81 Unsteadiness on feet
CPT/HCPCS: 36415; 80053; 80061; 83721; 84443; 85025

== ENCOUNTER 2021-06-04 10:30 | Outpatient (CLI) | payer MEDICARE ==
[2021-06-04 20:03] LABS: ESTIMATED AVERAGE GLUCOSE 85 mg/dL (70-100); HEMOGLOBIN A1c% 4.6 % (4.27-6.07)
== END 2021-06-04 10:31 | disposition home or self-care (01) ==
LOC: LAB.S 10:30
PROVIDERS: ATTEND Physician Assistant
DX: R73.9 Hyperglycemia, unspecified (principal)
CPT/HCPCS: 36415; 83036

== ENCOUNTER 2021-08-31 08:00 | Outpatient (CLI) | payer MEDICARE ==
--- NOTE | 2021-08-31 13:40 | XRAY Report ---
PROCEDURE: Knee 3 View RT INDICATIONS: CONTUSION OF UNSPECIFIED KNEE TECHNIQUE: 3 views of the right knee(s) were acquired. COMPARISON: None. FINDINGS: Bones: No fractures or dislocations. No suspicious bony lesions. Soft tissues: Mild soft tissue swelling along anterior aspect of patella tendon is seen. No significa nt joint effusion. No suspicious soft tissue calcifications. IMPRESSION: No right knee fracture or dislocation. No significant joint effusion. Mild soft tissue s welling along anterior aspect of patella tendon. Reviewed by: Jovanny Edouard MD on 08/31/2021 1:38 PM PDT Approved by: Jovanny Edouard MD on 08/31/2021 1:38 PM PDT Station ID: [id number]
== END 2021-08-31 23:59 | disposition home or self-care (01) ==
LOC: DI.S 08:00
PROVIDERS: ATTEND Physician Assistant Medical
DX: S80.01XA Contusion of right knee, initial encounter (principal)

== ENCOUNTER 2022-06-30 22:36 | Emergency (ER) | payer MEDICARE ==
[2022-07-01 00:38] LABS: BASOPHILS # (AUTO) 0.1 10^3/uL (0.0-0.1); BASOPHILS % (AUTO) 0.6 %; EOSINOPHILS % (AUTO) 0.2 %; HCT - HEMATOCRIT 33.2 % (37.0-47.0); HGB - HEMOGLOBIN 11.3 g/dL (12.0-16.0); LYMPHOCYTES # (AUTO) 0.8 10^3/uL (1.5-3.5); MEAN CORPUSCULAR HEMOGLOBIN 29.7 pg (27.0-31.0); MEAN CORPUSCULAR VOLUME 87.1 fL (81.0-99.0); MEAN PLATELET VOLUME 8.5 fL (7.9-10.8); MONOCYTES # (AUTO) 0.5 10^3/uL (0.0-1.0); MONOCYTES % (AUTO) 5.4 %; NEUTROPHILS # (AUTO) 8.1 10^3/uL (1.5-6.6); NEUTROPHILS % (AUTO) 85.5 %; PLT - PLATELET COUNT 219 10^3/uL (130-450); RED BLOOD COUNT 3.81 10^6/uL (4.20-5.40); RED CELL DISTRIBUTION WIDTH 13.2 % (12.0-15.0); WHITE BLOOD COUNT 9.4 x10^3/uL (4.8-10.8)
[2022-07-01 00:48] LABS: ALBUMIN 4.1 g/dL (3.2-5.5); ALBUMIN/GLOBULIN RATIO 1.3 (1.0-2.2); BILIRUBIN,TOTAL 1.2 mg/dL (0.2-1.0); CALCIUM 9.3 mg/dL (8.5-10.3); POTASSIUM 3.8 mmol/L (3.5-5.0); TOTAL PROTEIN 7.3 g/dL (6.7-8.2)
--- NOTE | 2022-07-01 01:31 | ED Physician Documentation ---
PD HPI ABD PAIN - Stated complaint Stated Complaint: ABD PX - Chief complaint Chief Complaint: Abd Pain - History obtained from History obtained from: Patient (minimal contribution to HPI/ROS due to dementia), Family (spouse in ED at bedside provides most of HPI and what limited ROS he can) - History of Present Illness Timing - onset: Enter time (20:00), Today Timing - details: Abrupt onset Quality: Pain Location: Other (upper abdomen) Associated symptoms: No: Fever, Nausea, Vomiting - Additional information Additional information: patient is quite, answers few questions although she is awake and alert. Spouse is in ED at bedside, says patient c/o upper abdominal pain since 8 PM tonight after eating dinner. Has not had similar symptoms before. Patient is in NAD and says the discomfort appears to have resolved prior to this evaluation. Review of Systems Constitutional: denies: Fever GI: reports: Abdominal Pain. 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 - Present Medications Home Medications: Ambulatory Orders Medication Instructions Recorded Confirmed Benztropine [Cogentin] 0.5 mg PO DAILY 08/14/16 10/02/17 Donepezil HCl [Aricept] 10 mg PO DAILY 08/14/16 10/02/17 QUEtiapine [SEROquel] 50 mg PO TID 08/14/16 10/02/17 Lorazepam 0.25 mg PO BID 06/18/17 10/02/17 haloperidoL [Haloperidol] 1 mg BID 06/18/17 10/02/17 haloperidoL [Haloperidol] 1.5 mg DAILY PM 06/18/17 10/02/17 LORazepam [Ativan] 0.5 mg PO QPM MDD at bedtime 07/03/17 10/02/17 Acetaminophen 500 mg PO DAILY PRN 10/02/17 10/02/17 - Allergies Allergies/Adverse Reactions: Allergies Allergy/AdvReac Type Severity Reaction Status Date / Time aspirin Allergy Intermediate Rash Verified 05/11/13 07:27 Sulfa (Sulfonamide Allergy Intermediate Edema Verified 05/11/13 07:27 Antibiotics) hydrogen peroxide Allergy Mild Rash Verified 05/11/13 09:34 [Hydrogen Peroxide] Penicillins Allergy Unknown unknown Verified 05/11/13 09:44 polyethylene glycol 3350 * Allergy Unknown unknown Verified 05/11/13 09:44 [From Miralax] procaine HCl * Allergy Unknown unknown Verified 05/11/13 09:44 [From Novocain] latex Allergy Unknown Verified 06/30/22 23:10 tape Allergy Intermediate Rash Uncoded 05/11/13 09:35 - Social History Does the pt smoke?: No Smoking Status: Never smoker Does the pt drink ETOH?: No - POLST Patient has POLST: Yes PD ED PE NORMAL - Vitals Vital signs reviewed: Yes - General General: No acute distress, Well developed/nourished, Other (awake, alert, good eye contact but little verbalization. answers few questions, answers quietly and with 1-2 word answers) - Cardiac Cardiac: RRR, No murmur - Respiratory Respiratory: No respiratory distress, Clear bilaterally - Abdomen Abdomen: Normal bowel sounds, Soft, Non tender, Non distended - Back Back: No CVA TTP - Derm Derm: No rash Results - Vitals Vitals: Oxygen O2 Source Room air - Labs Labs: Laboratory Tests 07/01/22 07/01/22 00:27 00:27 WBC 9.4 RBC 3.81 L Hgb 11.3 L Hct 33.2 L MCV 87.1 MCH 29.7 MCHC 34.0 RDW 13.2 Plt Count 219 MPV 8.5 Neut # (Auto) 8.1 H Lymph # (Auto) 0.8 L Cavalier # (Auto) 0.5 Eos # (Auto) 0.0 Baso # (Auto) 0.1 Absolute Nucleated RBC 0.00 Nucleated RBC % 0.0 Sodium 139 Potassium 3.8 Chloride 104 Carbon Dioxide 28 Anion Gap 7.0 BUN 20 Creatinine 1.0 Estimated GFR (MDRD) 54 L Glucose 172 H Calcium 9.3 Total Bilirubin 1.2 H AST 50 H ALT 27 Alkaline Phosphatase 97 Total Protein 7.3 Albumin 4.1 Globulin 3.2 Albumin/Globulin Ratio 1.3 Lipase 39 PD MEDICAL DECISION MAKING - ED course Complexity details: reviewed results, considered differential, d/w patient, d/w family ED course: presents with upper abdominal pain, onset 8 PM tonight but resolved DIRECTOR OF PUBLIC RELATIONS. She indicates discomfort when I palpate RUQ but only with deep palpation and without rebound, guarding. I performed bedside US (the US surveying technician is not in house at this time), and there appears to be sludge and gallstones in non-distended gallbladder. No remarkable findings on blood tests (mildly elevated bilirubin, AST). I discussed US findings with patient and family, with my suspicion for gallstones causing biliary colic. I further explained that she should be reevaluated by PMD and return precautions discussed. No further emergent testing nor treatment indicated at this time. Departure - Departure Disposition: 01 Home, Self Care Clinical Impression: Abdominal pain Qualifiers: Abdominal location: right upper quadrant Qualified Code(s): R10.11 - Right upper quadrant pain Condition: Good Instructions: ED Abdominal Pain Gallstone Poss Follow-Up: Javier Hawkins MD [Primary Care Provider] - (Next available appointment) Discharge Date/Time: 07/01/22 02:15
[2022-07-01 02:16] VITALS: BP 133/72
== END 2022-07-01 02:15 | disposition home or self-care (01) ==
LOC: ED 22:36
DX: R10.10 Upper abdominal pain, unspecified (principal); F03.90 Unspecified dementia, unspecified severity, without behavioral disturbance, psychotic disturbance, mood disturbance, and anxiety
CPT/HCPCS: 36415; 80053; 83690; 85025; 99282; 99283

== ENCOUNTER 2022-10-13 23:59 | Emergency (ER) | payer MEDICARE | END 2022-10-14 00:18 | disposition left against medical advice (07) | LOC: ED 23:59 | DX: Z53.21 Procedure and treatment not carried out due to patient leaving prior to being seen by health care provider (principal) ==

== ENCOUNTER 2024-02-03 08:00 | Outpatient (CLI) | payer MEDICARE | END 2024-02-03 23:59 | disposition home or self-care (01) | LOC: PC 08:00 | PROVIDERS: ATTEND Nurse Practitioner Gerontology | DX: Z51.5 Encounter for palliative care (principal); F03.918 Unspecified dementia, unspecified severity, with other behavioral disturbance; F31.9 Bipolar disorder, unspecified; G25.0 Essential tremor; G47.00 Insomnia, unspecified; Z79.899 Other long term (current) drug therapy; Z63.8 Other specified problems related to primary support group; Z74.1 Need for assistance with personal care | CPT/HCPCS: 99215 ==

== ENCOUNTER 2024-03-25 11:45 | Outpatient (CLI) | payer MEDICARE | END 2024-03-25 23:59 | disposition home or self-care (01) | LOC: PC 11:45 | PROVIDERS: ATTEND Nurse Practitioner Gerontology | DX: Z51.5 Encounter for palliative care (principal); F03.94 Unspecified dementia, unspecified severity, with anxiety; F31.9 Bipolar disorder, unspecified; G25.0 Essential tremor; I10 Essential (primary) hypertension; E03.9 Hypothyroidism, unspecified; Z65.8 Other specified problems related to psychosocial circumstances | CPT/HCPCS: 99349 ==

== ENCOUNTER 2024-05-23 16:03 | Emergency (ER) | payer MEDICARE ==
[2024-05-23 16:27] VITALS: BP 130/69; O2SAT 96
== END 2024-05-23 17:36 | disposition left against medical advice (07) ==
LOC: ED 16:03
DX: Z53.21 Procedure and treatment not carried out due to patient leaving prior to being seen by health care provider (principal)

== ENCOUNTER 2024-06-10 08:00 | Outpatient (CLI) | payer MEDICARE | END 2024-06-10 23:59 | disposition home or self-care (01) | LOC: PC 08:00 | PROVIDERS: ATTEND Nurse Practitioner Gerontology | DX: Z51.5 Encounter for palliative care (principal); F03.90 Unspecified dementia, unspecified severity, without behavioral disturbance, psychotic disturbance, mood disturbance, and anxiety; F31.64 Bipolar disorder, current episode mixed, severe, with psychotic features; Z71.89 Other specified counseling; Z79.899 Other long term (current) drug therapy | CPT/HCPCS: 99349 ==